=== PATIENT | female | born 1970 | race American Indian/Alaskan Native ===

== ENCOUNTER 2019-01-14 10:08 | Emergency (ER) | payer OTHER, MEDICARE ==
--- NOTE | 2019-01-14 11:06 | Emergency Department Report ---
ED General Adult HPI - General Chief complaint: Hypoglycemia Stated complaint: HYPOGLYCEMIA Time Seen by Provider: 01/14/19 10:47 Source: EMS Mode of arrival: Stretcher Limitations: No Limitations - History of Present Illness Initial comments: Patient is a 48-year-old female presents emergency room with complaints of an episode of hypoglycemia that occurred just prior to arrival. Patient [place]. She states that she took her Lantus 30 units this morning. Patient states that she did not eat breakfast this morning. She states while she was standing in line she began to feel shaky, diaphoretic, nauseous. She states that she told them her sugar was getting low and she tried to drink some juice but she believe she waited too late. Patient states that the last thing she remembers is feeling like her sugar was too low and then waking up in the emergency room. EMS report is that patient's blood sugar was in the 30s and they gave her 100 mL of D5 through an IO and then pt became responsive shortly after. pt states she is feeling much better. she denies any CP, SOB, palpitations, CHAVEZ, neck pain, back pain, or any injury. - Related Data Allergies Allergy/AdvReac Type Severity Reaction Status Date / Time codeine Allergy Unknown Verified 01/14/19 10:41 lisinopril Allergy Unknown Verified 01/14/19 10:41 Penicillins Allergy Unknown Verified 01/14/19 10:41 ED Review of Systems ROS: Stated complaint: HYPOGLYCEMIA Other details as noted in HPI Comment: All other systems reviewed and negative ED Past Medical Hx - Past Medical History Previous Medical History?: Yes Hx Hypertension: Yes Hx Diabetes: Yes Hx Deep Vein Thrombosis: Yes - Surgical History Past Surgical History?: Yes Additional Surgical History: kIDNEY TRANSPLANT 2017 - Social History Smoking Status: Unknown if ever smoked Substance Use Type: None ED Physical Exam - General Limitations: No Limitations General appearance: alert, in no apparent distress - Head Head exam: Present: atraumatic, normocephalic - Eye Eye exam: Present: other (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 Absent: tenderness - Respiratory Respiratory exam: Present: normal lung sounds bilaterally. Absent: respiratory distress, wheezes, rales, rhonchi, stridor, chest wall tenderness, accessory muscle use, decreased breath sounds, prolonged expiratory - Cardiovascular Cardiovascular Exam: Present: regular rate, normal rhythm, normal heart sounds. Absent: systolic murmur, diastolic murmur, rubs, gallop - Back Exam Back exam: Present: normal inspection, full ROM. Absent: paraspinal tenderness, vertebral tenderness - Neurological Exam Neurological exam: Present: alert, oriented X3, normal gait, other (CN III-XII intact). Absent: motor sensory deficit - Psychiatric Psychiatric exam: Present: normal affect, normal mood - Skin Skin exam: Present: warm, dry, intact ED Course Vital Signs 01/14/19 01/14/19 01/14/19 10:08 10:18 10:30 Temperature Pulse Rate 61 62 66 Respiratory 16 11 L 13 Rate Blood Pressure 116/64 116/64 Blood Pressure [Left] O2 Sat by Pulse 100 100 100 Oximetry 01/14/19 01/14/19 01/14/19 10:35 10:40 10:46 Temperature 98.5 F Pulse Rate 65 Respiratory 16 15 Rate Blood Pressure 122/82 Blood Pressure [Left] O2 Sat by Pulse 100 Oximetry 01/14/19 01/14/19 01/14/19 11:00 11:16 11:30 Temperature Pulse Rate 63 66 64 Respiratory 12 19 16 Rate Blood Pressure 122/82 126/65 136/55 Blood Pressure [Left] O2 Sat by Pulse 99 100 100 Oximetry 01/14/19 01/14/19 01/14/19 11:46 12:00 12:16 Temperature Pulse Rate 70 63 61 Respiratory 15 13 13 Rate Blood Pressure 136/65 130/65 124/61 Blood Pressure [Left] O2 Sat by Pulse 100 100 99 Oximetry 01/14/19 01/14/19 01/14/19 12:30 12:46 13:00 Temperature Pulse Rate 59 L 68 69 Respiratory 15 14 16 Rate Blood Pressure 115/58 112/57 145/74 Blood Pressure [Left] O2 Sat by Pulse 98 100 100 Oximetry 01/14/19 01/14/19 01/14/19 13:16 13:30 13:46 Temperature Pulse Rate 71 73 72 Respiratory 12 12 18 Rate Blood Pressure 145/74 145/74 136/70 Blood Pressure [Left] O2 Sat by Pulse 100 97 100 Oximetry 01/14/19 01/14/19 01/14/19 14:02 14:15 14:31 Temperature Pulse Rate 76 76 78 Respiratory 16 17 15 Rate Blood Pressure 126/65 142/69 135/65 Blood Pressure [Left] O2 Sat by Pulse 97 99 100 Oximetry 01/14/19 01/14/19 01/14/19 14:45 15:01 15:10 Temperature Pulse Rate 77 73 83 Respiratory 17 13 16 Rate Blood Pressure 142/65 123/60 Blood Pressure 139/61 [Left] O2 Sat by Pulse 98 96 100 Oximetry ED Medical Decision Making - Lab Data Result diagrams: 01/14/19 11:10 01/14/19 11:10 Lab Results 01/14/19 01/14/19 01/14/19 Range/Units 10:22 11:10 11:10 WBC 7.7 (4.5-11.0) K/mm3 RBC 3.91 (3.65-5.03) M/mm3 Hgb 11.9 (10.1-14.3) gm/dl Hct 36.5 (30.3-42.9) % MCV 93 (79-97) fl MCH 31 (28-32) pg MCHC 33 (30-34) % RDW 15.4 H (13.2-15.2) % Plt Count 225 (140-440) K/mm3 Add Manual Diff Complete Total Counted 100 Seg Neuts % (Manual) 79.0 H (40.0-70.0) % Band Neutrophils % 0 % Lymphocytes % (Manual) 10.0 L (13.4-35.0) % Reactive Lymphs % (Man) 0 % Monocytes % (Manual) 11.0 H (0.0-7.3) % Eosinophils % (Manual) 0 (0.0-4.3) % Basophils % (Manual) 0 (0.0-1.8) % Metamyelocytes % 0 % Myelocytes % 0 % Promyelocytes % 0 % Blast Cells % 0 % Nucleated RBC % Not Reportable Seg Neutrophils # Man 6.1 (1.8-7.7) K/mm3 Band Neutrophils # 0.0 K/mm3 Lymphocytes # (Manual) 0.8 L (1.2-5.4) K/mm3 Abs React Lymphs (Man) 0.0 K/mm3 Monocytes # (Manual) 0.8 (0.0-0.8) K/mm3 Eosinophils # (Manual) 0.0 (0.0-0.4) K/mm3 Basophils # (Manual) 0.0 (0.0-0.1) K/mm3 Metamyelocytes # 0.0 K/mm3 Myelocytes # 0.0 K/mm3 Promyelocytes # 0.0 K/mm3 Blast Cells # 0.0 K/mm3 WBC Morphology Not Reportable Hypersegmented Neuts Not Reportable Hyposegmented Neuts Not Reportable Hypogranular Neuts Not Reportable Smudge Cells Not Reportable Toxic Granulation Not Reportable Toxic Vacuolation Not Reportable Dohle Bodies Rare Pelger-Huet Anomaly Not Reportable Kori Rods Not Reportable Platelet Estimate Consistent w auto Clumped Platelets Not Reportable Plt Clumps, EDTA Not Reportable Large Platelets Not Reportable Giant Platelets Not Reportable Platelet Satelliting Not Reportable Plt Morphology Comment Not Reportable RBC Morphology Normal Dimorphic RBCs Not Reportable Polychromasia Not Reportable Hypochromasia Not Reportable Poikilocytosis Not Reportable Anisocytosis Not Reportable Microcytosis Not Reportable Macrocytosis Not Reportable Spherocytes Not Reportable Pappenheimer Bodies Not Reportable Sickle Cells Not Reportable Target Cells Not Reportable Tear Drop Cells Not Reportable Ovalocytes Not Reportable Helmet Cells Not Reportable Duval-Doyline Bodies Not Reportable [place] Rings Not Reportable Monika Cells Not Reportable Bite Cells Not Reportable Crenated Cell Not Reportable Elliptocytes Not Reportable Acanthocytes (Spur) Not Reportable Rouleaux Not Reportable Hemoglobin C Crystals Not Reportable Schistocytes Not Reportable Malaria parasites Not Reportable Amos Bodies Not Reportable Hem Pathologist Commnt No Sodium 141 (137-145) mmol/L Potassium 4.0 (3.6-5.0) mmol/L Chloride 104.3 (98-107) mmol/L Carbon Dioxide 22 (22-30) mmol/L Anion Gap 19 mmol/L BUN 20 H (7-17) mg/dL Creatinine 0.8 (0.7-1.2) mg/dL Estimated GFR > 60 ml/min BUN/Creatinine Ratio 25 % Glucose 91 (65-100) mg/dL POC Glucose 72 (70-105) Calcium 9.7 (8.4-10.2) mg/dL 01/14/19 Range/Units 14:41 WBC (4.5-11.0) K/mm3 RBC (3.65-5.03) M/mm3 Hgb (10.1-14.3) gm/dl Hct (30.3-42.9) % MCV (79-97) fl MCH (28-32) pg MCHC (30-34) % RDW (13.2-15.2) % Plt Count (140-440) K/mm3 Add Manual Diff Total Counted Seg Neuts % (Manual) (40.0-70.0) % Band Neutrophils % % Lymphocytes % (Manual) (13.4-35.0) % Reactive Lymphs % (Man) % Monocytes % (Manual) (0.0-7.3) % Eosinophils % (Manual) (0.0-4.3) % Basophils % (Manual) (0.0-1.8) % Metamyelocytes % % Myelocytes % % Promyelocytes % % Blast Cells % % Nucleated RBC % Seg Neutrophils # Man (1.8-7.7) K/mm3 Band Neutrophils # K/mm3 Lymphocytes # (Manual) (1.2-5.4) K/mm3 Abs React Lymphs (Man) K/mm3 Monocytes # (Manual) (0.0-0.8) K/mm3 Eosinophils # (Manual) (0.0-0.4) K/mm3 Basophils # (Manual) (0.0-0.1) K/mm3 Metamyelocytes # K/mm3 Myelocytes # K/mm3 Promyelocytes # K/mm3 Blast Cells # K/mm3 WBC Morphology Hypersegmented Neuts Hyposegmented Neuts Hypogranular Neuts Smudge Cells Toxic Granulation Toxic Vacuolation Dohle Bodies Pelger-Huet Anomaly Kori Rods Platelet Estimate Clumped Platelets Plt Clumps, EDTA Large Platelets Giant Platelets Platelet Satelliting Plt Morphology Comment RBC Morphology Dimorphic RBCs Polychromasia Hypochromasia Poikilocytosis Anisocytosis Microcytosis Macrocytosis Spherocytes Pappenheimer Bodies Sickle Cells Target Cells Tear Drop Cells Ovalocytes Helmet Cells Duval-Doyline Bodies [place] Rings Monika Cells Bite Cells Crenated Cell Elliptocytes Acanthocytes (Spur) Rouleaux Hemoglobin C Crystals Schistocytes Malaria parasites Amos Bodies Hem Pathologist Commnt Sodium (137-145) mmol/L Potassium (3.6-5.0) mmol/L Chloride (98-107) mmol/L Carbon Dioxide (22-30) mmol/L Anion Gap mmol/L BUN (7-17) mg/dL Creatinine (0.7-1.2) mg/dL Estimated GFR ml/min BUN/Creatinine Ratio % Glucose (65-100) mg/dL POC Glucose 347 H (70-105) Calcium (8.4-10.2) mg/dL - Medical Decision Making Patient is a 48-year-old female presents emergency room with complaints of an episode of hypoglycemia that occurred just prior to arrival. Patient states that she is at the [employer] getting fingerprinting done. She states that she took her Lantus 30 units this morning. Patient states that she did not eat breakfast this morning. She states while she was standing in line she began to feel shaky, diaphoretic, nauseous. She states that she told them her sugar was getting low and she tried to drink some juice but she believe she waited too late. Patient states that the last thing she remembers is feeling like her sugar was too low and then waking up in the emergency room. EMS report is that patient's blood sugar was in the 30s and they gave her 100 mL of D5 through an IO and then pt became responsive shortly after. pt states she is feeling much better. she denies any CP, SOB, palpitations, CHAVEZ, neck pain, back pain, or any injury. Vitals are stable. Labs are stable. On BMP glucose is 91. ordered f or patient to have IV fluid and glucose patient states that the IO line placed by EMS is painful and she declines to receive medications through the IO line. Nurses were not able to place an IV line. Patient was given breakfast and lunch and given juice. On repeat of her blood glucose several hours later her blood sugar is 347. Patient was observed in the emergency department for multiple hours and had no further hypoglycemic episodes. Patient states she is feeling much better and is ready to go home. Discussed the importance of meals with patient due to the fact that she is using insulin. Also discussed with her to see her primary care doctor for insulin adjustments. advised pt to please eat three full meals while taking insulin. increase your fluid intake. please discuss your insulin doses with your primary care doctor to have adjustments made. return to the emergency room for any new or worsening symptoms. Critical care attestation.: If time is entered above; I have spent that time in minutes in the direct care of this critically ill patient, excluding procedure time. ED Disposition Clinical Impression: Hypoglycemia Disposition: DC-01 TO HOME OR SELFCARE Is pt being admited?: No Does the pt Need Aspirin: No Condition: Stable Instructions: Diabetic Hypoglycemia (ED) Additional Instructions: please eat three full meals while taking insulin. increase your fluid intake. please discuss your insulin doses with your primary care doctor to have adjust ments made. return to the emergency room for any new or worsening symptoms. Referrals: LOUIS YATES MD [Primary Care Provider] - 2-3 Days Forms: Work/School Release Form(ED) Time of Disposition: 14:39 Print Language: SAMI
[2019-01-14 11:40] LABS: Hematocrit 36.5 % (30.3-42.9); Hemoglobin 11.9 gm/dl (10.1-14.3); Mean Corpuscular HGB Conc 33 % (30-34); Mean Corpuscular Volume 93 fl (79-97); Platelet Count 225 K/mm3 (140-440); Red Blood Count 3.91 M/mm3 (3.65-5.03); Red Cell Distribution Width 15.4 % (13.2-15.2)
[2019-01-14 11:53] LABS: BUN/Creatinine Ratio 25; Blood Urea Nitrogen 20 mg/dL (7-17); Calcium 9.7 mg/dL (8.4-10.2); Hemolysis Index 50
[2019-01-14] MEDS: DEXTROSE 50% IN WATER (25GM) 50 ML SYRINGE IV ONE ×2 (12:47→13:35)
[2019-01-14] MEDS: SODIUM CHLORIDE 0.9% 1000 ML 1,000 ML IV ONE ×2 (12:48→13:35)
[2019-01-14 12:55] LABS: Basophils % (Manual) 0 % (0.0-1.8); Eosinophils % (Manual) 0 % (0.0-4.3); Total Cells Counted 100
[2019-01-14 12:56] LABS: Dohle Bodies Rare; Platelet Estimate Consistent w Auto; RBC Morphology Normal
[2019-01-14 15:11] VITALS: BP 139/61
== END 2019-01-14 15:10 | disposition home or self-care (01) ==
LOC: ED 10:08
DX: E11.649 Type 2 diabetes mellitus with hypoglycemia without coma (principal); I10 Essential (primary) hypertension; Z88.0 Allergy status to penicillin; Z88.5 Allergy status to narcotic agent; Z86.718 Personal history of other venous thrombosis and embolism
CPT/HCPCS: 36415; 80048; 82962; 85007; 85025; 99284; J7030